=== PATIENT | female | born 1965 | race Caucasian/White ===

== ENCOUNTER 2017-04-29 22:01 | Emergency (ER) | payer OTHER ==
[2017-04-29 22:08] VITALS: RESP 16; TEMP 97.9
[2017-04-29] MEDS ORDERED: SKIN ADHESIVE (DERMABOND) 1 EACH TP ONE (23:46)
--- NOTE | 2017-04-29 23:49 | EDPHY ---
H & P Stated Complaint: open suture site Time Seen by Provider: 04/29/17 23:03 HPI/ROS: HPI The patient presents with wound dehiscence posterior to right ear which occurred today after sutures were removed from a surgical incision for plastic surgery. The patient has had bleeding from the wound and noticed that it opened , thus comes to the emergency room for evaluation.. REVIEW OF SYSTEMS Constitutional: No fever, no chills. Skin: No rashes. Neurological: No headache. PMHx: Healthy PHYSICAL General Appearance: Alert, no distress Eyes: Pupils equal and round no pallor or injection ENT, Mouth: Mucous membranes moist Respiratory: Breathing comfortably Neurological: A&O, moves all extremities Skin: Posterior to right ear there is a 1.5 cm open portion of her surgical incisions car, there is no surrounding erythema, warmth, edema Psychiatric: Patient is oriented X 3, there is no agitation Source: Patient - Personal History LMP (Females 10-55): 1-7 Days Ago Current Tetanus/Diphtheria Vaccine: No Current Tetanus Diphtheria and Acellular Pertussis (TDAP): No - Medical/Surgical History Hx Asthma: No Hx Chronic Respiratory Disease: No Hx Diabetes: No Hx Cardiac Disease: No Hx Renal Disease: No Hx Cirrhosis: No Hx Alcoholism: No Hx HIV/AIDS: No Hx Splenectomy or Spleen Trauma: No Other PMH: ARNOLD shoulder surgery, R knee surgery, - Social History Smoking Status: Never smoked Constitutional: Initial Vital Signs Temperature (C) 36.6 C 04/29/17 22:05 Heart Rate 83 04/29/17 22:05 Respiratory Rate 16 04/29/17 22:05 Blood Pressure 127/75 H 04/29/17 22:05 O2 Sat (%) 98 04/29/17 22:05 O2 Delivery Mode Room Air Allergies/Adverse Reactions: ceftriaxone [From Rocephin] Allergy (Verified 04/29/17 22:04) Penicillins Allergy (Verified 04/29/17 22:04) Home Medications: Medication Instructions Recorded Methylprednisolone 04/29/17 Medical Decision Making Procedures: LACERATION REPAIR Procedure: Laceration repair. Verbal consent was obtained from the patient. The linear 1.5cm laceration on the posterior surface of right ear. The wound was scrubbed, draped and explored to its base with a gloved finger. There were no deep structures involved. No tendon injury was identified. . The wound was repaired with tissue adhesive. The wound repair was simple. The procedure was performed by myself. Differential Diagnosis: This is a 52-year-old female, 1 week status post plastic surgery, had sutures removed today and now has wound dehiscence. Because the wound is gaping, I plan to repair with Dermabond. We will irrigated 1st. - Data Points Medications Given: Discontinued Medications Octyl Cyanoacrylate (Dermabond) 1 each TP EDNOW ONE Stop: 04/29/17 23:47 Last Admin: 04/29/17 23:58 Dose: 1 each Departure - Departure Disposition: Home, Routine, Self-Care Clinical Impression: Problem involving surgical incision Condition: Good Instructions: Skin Adhesive Care (ED) Referrals: GIGI CHAVEZ [Primary Care Provider] - As per Instructions
[2017-04-30 00:08] VITALS: BP 115/67; PULSE 73; O2SAT 93
== END 2017-04-30 00:10 | disposition home or self-care (01) ==
PROC: 0HQ2XZZ Repair Right Ear Skin, External Approach (ICD-10-PCS; principal; 2017-04-29)
DX: T81.30XA Disruption of wound, unspecified, initial encounter (principal); Y82.8 Other medical devices associated with adverse incidents